=== PATIENT | female | born 1995 | race Caucasian/White ===

== ENCOUNTER 2017-01-22 18:13 | Inpatient (IN) | payer OTHER ==
[2017-01-22 19:30] LABS: Urine Bacteria Absent (Absent); Urine Bilirubin Negative (Negative); Urine Glucose Negative (Negative); Urine Nitrite Negative (Negative)
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
[2017-01-22 19:37] LABS: Benzodiazepine Urine Screen None Detected (None Detect)
[2017-01-22 19:39] LABS: Hematocrit 40 % (35-47); Hemoglobin 13.2 g/dl (12.0-16.0); Mean Corpuscular HGB Conc 33 g/dl (31-36); Mean Corpuscular Hemoglobin 27 pg (27-31); Mean Corpuscular Volume 84 fL (80-97); Mean Platelet Volume 9 um3 (7.4-10.4); Red Blood Count 4.82 10^6/ul (4.0-5.4); Red Cell Distribution Width 13 % (10.5-15); White Blood Count 12.5 10^3/ul (3.5-10.8)
[2017-01-22 19:53] LABS: ALT 12 U/L (7-52); AST 13 U/L (13-39); Albumin 3.9 g/dL (3.2-5.2); Alkaline Phosphatase 32 U/L (34-104); Anion Gap 9 mmol/L (2-11); BUN/Creatinine Ratio 13.6 (8-20); Blood Urea Nitrogen 11 mg/dL (6-24); CO2 Carbon Dioxide 21 mmol/L (22-32); Calcium 8.8 mg/dL (8.6-10.3); Chloride 103 mmol/L (101-111); EGFR African American 115.9 (>60); EGFR Non-African American 90.1 (>60); Globulin 3.3 g/dL (2-4); Glucose 110 mg/dL (70-100); Potassium 3.4 mmol/L (3.5-5.0); Sodium 133 mmol/L (133-145); Total Protein 7.2 g/dL (6.4-8.9)
[2017-01-22 20:14] LABS: Acetaminophen < 15 mcg/mL; Alcohol < 10 mg/dL (<10); Salicylate < 2.50 mg/dL (<30)
[2017-01-22 20:24] LABS: TSH (Thyroid Stimulating Horm) 1.79 mcIU/mL (0.34-5.60)
[2017-01-23] MEDS ORDERED: Nicotine Inhaler* 10 MG AMP INH PRN (11:59)
[2017-01-23] MEDS ORDERED: LEVORA PO SCH ×2 (12:00→18:00)
[2017-01-23] MEDS ORDERED: Mouth Piece, Nicotine* 1 EACH CARTRIDGE INH ONE (13:00)
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
[2017-01-24] MEDS ORDERED: LEVORA PO SCH (09:00)
[2017-01-24 10:10] VITALS: BP 111/70
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
--- NOTE | 2017-01-24 20:03 | ED ---
Devin Griffith Aidan, scribed for Kemal Terrell on 01/23/17 at 0627 . Progress - Progress Note Progress Note: The patient is waiting for a mental health evaluation. - Consult/PCP Time Called: 20:00 Course/Dx - Course Course Of Treatment: 21F presents with depression and cutting self today. had fight with male that was interested in dating. never seen anyone for depression beside one time group therapy last semester. denies any si/hi. superficial scratches to left forearm on exam. patient medically clear for mental health exam. signed out to dr terrell pending mhe - Diagnoses Provider Diagnoses: Persistent mood [affective] disorder, unspecified The documentation as recorded by the coletteibDevin son Aidan accurately reflects the service I personally performed and the decisions made by Alfred bob Emmanuel.
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
== END 2017-01-24 14:25 | disposition home or self-care (01) | DRG 882 ==
LOC: ED 18:13 → BSU 01-23 11:59
PROVIDERS: ADMIT Psychiatry & Neurology Psychiatry; ATTEND Psychiatry & Neurology Psychiatry
DX: F43.25 Adjustment disorder with mixed disturbance of emotions and conduct (principal); R45.851 Suicidal ideations; J30.2 Other seasonal allergic rhinitis; Z79.3 Long term (current) use of hormonal contraceptives; Z79.899 Other long term (current) drug therapy; Z81.8 Family history of other mental and behavioral disorders
CPT/HCPCS: 36415; 80053; 80307; 80320; 80329; 81003; 81015; 84443; 85025; 87086; 99238; G0480